=== PATIENT | female | born 1985 | race Caucasian/White ===

== ENCOUNTER 2019-06-18 10:18 | Emergency (ER) | payer MEDICAID, OTHER ==
--- NOTE | 2019-06-18 11:16 | EDM.PDOC ---
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 Initially developed sinus discomfort and drainage a week ago. No fever/ST/cough or respiratory symptoms. Has been seen twice for her symptoms over the week. First by Maribel, then by Jose Guadalupe, due to the increased concern over Covid 19 and possible contraction of the virus by worksite. Cleared at first visit, thought to be viral/sinusitis. Jose Guadalupe also cleared her but decided to give the patient updated pneumonia and flu vaccinations. This was 3 days ago. Over the last 24-36 hours patient has started to develop redness over the right arm site where pneumonia shot given. Also is achy in that area and has had low grade temp. Currently afebrile as she took Tylenol. Continues to have some sinus discomfort. No respiratory changes/cough/wheeze/ SOB. No GI changes noted. Denies UTI complaints. Denies headache/ear pain. 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 [No Known Home Meds] 06/18/19 [History] Past Medical History - Past Health History Medical/Surgical History: Denies Medical/Surgical History Social & Family History - Tobacco Use Smoking Status *Q: Current Every Day Smoker Years of Tobacco use: 17 Packs/Tins Daily: 0.5 Second Hand Smoke Exposure: Yes - Caffeine Use Caffeine Use: Reports: Coffee, Soda Caffeine Use Comment: coffee- 2-3 daily soda, 1-2 per day - Alcohol Use Alcohol Use History: Yes Alcohol Use Frequency: Rarely - Recreational Drug Use Recreational Drug Use: No ED ROS GENERAL - Review of Systems Review Of Systems: Comprehensive ROS is negative, except as noted in HPI. ED EXAM, GENERAL - Physical Exam Exam: See Below Exam Limited By: No Limitations General Appearance: Alert, WD/WN, No Apparent Distress, Anxious Eye Exam: Bilateral Eye: EOMI, PERRL Ears: Normal External Exam, Hearing Grossly Normal Nose: No: Nasal Deformity, Nasal Swelling, Nasal Drainage Throat/Mouth: Normal Inspection Head: Atraumatic, Normocephalic Neck: Supple, Non-Tender Respiratory/Chest: No Respiratory Distress, Lungs Clear, Normal Breath Sounds, No Accessory Muscle Use Cardiovascular: Regular Rate, Rhythm, No Murmur GI/Abdominal: Soft (Female) Exam: Deferred Rectal (Female) Exam: Deferred Back Exam: No: Muscle Spasm Extremities: Normal Capillary Refill, Other (area of redness noted over proximaly right arm/increased warmth to touch/discomfort with palpation. Joints unremarkable/full ROM. ) Neurological: Alert, Oriented, Normal Cognition, Normal Gait, No Motor/Sensory Deficits Psychiatric: Normal Affect, Normal Mood Skin Exam: Warm, Erythema, Increased Warmth (as above), Rash (as above). No: Cool, Cyanosis, Diaphoretic, Mottled, Zoster-Like Rash Course - Vital Signs Last Recorded V/S: Last Vital Signs Temp 36.4 C 06/18/19 10:21 Pulse 98 06/18/19 10:21 Resp 16 06/18/19 10:21 BP 113/63 06/18/19 10:21 Pulse Ox 98 06/18/19 10:21 - Re-Assessments/Exams Free Text/Narrative Re-Assessment/Exam: 06/18/19 11:20 Suspect reaction to immunization as side effects can include rash at injection site and fever. Influenza and rapid strep testing performed to officially rule out those possibilities. Patient is not appearing to exhibit usual symptoms associated with Covid 19. Does not meet testing criteria. OK to return to work if she abides by handwashing rules and wears mask until asymptomatic for 24 hours. To follow up as needed otherwise. Departure - Departure Time of Disposition: 11:23 Disposition: Home, Self-Care 01 Condition: Good Clinical Impression: Immunization reaction Qualifiers: Encounter type: initial encounter Qualified Code(s): T50.Z95A - Adverse effect of other vaccines and biological substances, initial encounter - Discharge Information *PRESCRIPTION DRUG MONITORING PROGRAM REVIEWED*: Not Applicable *COPY OF PRESCRIPTION DRUG MONITORING REPORT IN PATIENT LISA: Not Applicable Additional Instructions: Observe for changes and follow up as needed. Wear a mask at work until you are asymptomatic for 24 hours. Follow handwashing procedures. Sepsis Event Note - Evaluation Sepsis Screening Result: No Definite Risk - Focused Exam Vital Signs: Vital Signs Temp Pulse Resp BP Pulse Ox 06/18/19 10:21 36.4 C 98 16 113/63 98 Date Exam was Performed: 06/18/19 Time Exam was Performed: 11:00
== END 2019-06-18 11:45 | disposition home or self-care (01) ==
LOC: LL.ED 10:18
DX: R50.9 Fever, unspecified (principal); T50.Z95A Adverse effect of other vaccines and biological substances, initial encounter; F17.210 Nicotine dependence, cigarettes, uncomplicated
CPT/HCPCS: 87081; 87430; 87804; 99283

== ENCOUNTER 2019-10-23 19:30 | Emergency (ER) | payer OTHER, MEDICAID ==
[2019-10-23] MEDS ORDERED: Cephalexin 250 MG Cap PO ONE (20:12)
--- NOTE | 2019-10-23 20:17 | EDM.PDOC ---
ED HPI GENERAL MEDICAL PROBLEM - General Chief Complaint: General Stated Complaint: lump near earlobe on right ear Time Seen by Provider: 10/23/19 19:32 Source of Information: Reports: Patient History Limitations: Reports: No Limitations - History of Present Illness INITIAL COMMENTS - FREE TEXT/NARRATIVE: Patient comes in to have area of redness/swelling/pain assessed that is started out right in front of ear lobe of right ear. 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 Reforms if attempts to express it performed. Has not become infected before--patient wonders if mask wearing at work irritated it. No fevers/chills. Hurts to open her mouth today. Unable to get clinic appointment until Wednesday so had to come to ER as this was worsening. Redness started several days ago. Right Ear Pain Score (Numeric/FACES): 5 - Related Data Allergies Allergy/AdvReac Type Severity Reaction Status Date / Time No Known Allergies Allergy Verified 06/18/19 10:20 Home Meds: Home Meds cephALEXin [Keflex] 500 mg PO Q8H #15 cap 10/23/19 [Rx] norgestimate-ethinyl estradioL [Tri-Linyah Tablet] 1 tab PO DAILY 10/23/19 [History] Past Medical History - Past Health History Medical/Surgical History: Denies Medical/Surgical History - Infectious Disease History Infectious Disease History: Reports: Chicken Pox Social & Family History - Caffeine Use Caffeine Use: Reports: Coffee, Soda Caffeine Use Comment: coffee- 2-3 daily soda, 1-2 per day ED ROS GENERAL - Review of Systems Review Of Systems: Comprehensive ROS is negative, except as noted in HPI. ED EXAM, GENERAL - Physical Exam Exam: See Below Exam Limited By: No Limitations General Appearance: Alert, WD/WN, No Apparent Distress Eye Exam: Bilateral Eye: EOMI, PERRL Ears: Other (area of firmness/redness/swelling that is tender to touch is noted just anterior to right ear lobe. Small blackhead at center. No active drainage. ) Nose: Normal Inspection Throat/Mouth: Normal Inspection, Normal Voice, No Airway Compromise Head: Atraumatic Neck: Supple, Non-Tender, Full Range of Motion. No: Lymphadenopathy (L), Lymphadenopathy (R) Respiratory/Chest: No Respiratory Distress Neurological: Alert, Oriented, Normal Cognition, Normal Gait Psychiatric: Normal Affect, Normal Mood Skin Exam: Other (see above) ED GENERAL MEDICAL PROCEDURES - Additional/Other Procedure(s) Other (Free Text) Procedure(s): Small 1cm incision made over abscess using #11 blade. Copious amounts of purulent material drained from site. 2cm of 1/4" iodoform packed into area. Wound then dressed by nursing staff. Course - Vital Signs Last Recorded V/S: Last Vital Signs Temp 36.3 C 10/23/19 20:01 Pulse 74 10/23/19 20:01 Resp 18 10/23/19 20:01 BP 115/63 10/23/19 20:01 Pulse Ox 99 10/23/19 20:01 - Orders/Labs/Meds Meds: Medications Discontinued Medications Generic Name Dose Route Start Last Admin Trade Name Freq PRN Reason Stop Dose Admin Cephalexin 500 mg 10/23/19 20:12 Keflex PO 10/23/19 20:13 ONETIME ONE - Re-Assessments/Exams Free Text/Narrative Re-Assessment/Exam: 10/23/19 20:23 Abscess drained. Packed with small amount Iodoform. Keflex PO given. Wound care reviewed. Recommend she follow up with Derm or other capable provider to have cyst wall from EIC removed once infection cleared and inflammation resolved. Recommend wound check in two days. To follow up as needed otherwise. Departure - Departure Time of Disposition: 20:13 Disposition: Home, Self-Care 01 Condition: Good Clinical Impression: Abscess - Discharge Information *PRESCRIPTION DRUG MONITORING PROGRAM REVIEWED*: Not Applicable *COPY OF PRESCRIPTION DRUG MONITORING REPORT IN PATIENT LISA: Not Applicable Prescriptions: cephALEXin [Keflex] 500 mg PO Q8H #15 cap Instructions: Skin Abscess, [id number] Referrals: Ciera Vega NP [Primary Care Provider] - Forms: ED Department Discharge Additional Instructions: Keep packing in for two days. See if you can get appointment at your clinic for wound check/new packing if needed on Wednesday of this week. Feel free to call our clinic if you have any problems getting in to yours. TAke Keflex as directed. Recommend getting cyst wall removed in a month or two to prevent recurrence as we discussed. Follow up otherwise as needed if you have any problems/concerns. Sepsis Event Note (ED) - Evaluation Sepsis Screening Result: No Definite Risk - Focused Exam Vital Signs: Vital Signs Temp Pulse Resp BP Pulse Ox 10/23/19 20:01 36.3 C 74 18 115/63 99
== END 2019-10-23 20:30 | disposition home or self-care (01) ==
LOC: SUPCPDRO 19:30 → LL.ED 19:30
DX: H60.01 Abscess of right external ear (principal)
CPT/HCPCS: 10060; 99282-25

== ENCOUNTER 2019-11-26 17:02 | Emergency (ER) | payer OTHER, MEDICAID ==
--- NOTE | 2019-11-26 17:40 | EDM.PDOC ---
ED HPI GENERAL MEDICAL PROBLEM - General Chief Complaint: ENT Problem Stated Complaint: bilat ear pain Time Seen by Provider: 11/26/19 17:15 Source of Information: Reports: Patient History Limitations: Reports: No Limitations - History of Present Illness INITIAL COMMENTS - FREE TEXT/NARRATIVE: Pt presents with ear pain No fever Also with white spots in her throat No cough Onset: Gradual Location: Reports: Head Associated Symptoms: Reports: Other (Ear pain Sore throat) bilat ear pain Pain Score (Numeric/FACES): 5 - Related Data Allergies Allergy/AdvReac Type Severity Reaction Status Date / Time No Known Allergies Allergy Verified 11/26/19 17:02 Home Meds: Home Meds norgestimate-ethinyl estradioL [Tri-Linyah Tablet] 1 tab PO DAILY 10/23/19 [History] Ibuprofen 400 mg PO Q6HR PRN 11/26/19 [History] Past Medical History - Past Health History Medical/Surgical History: Denies Medical/Surgical History HEENT History: Reports: Impaired Vision, Other (See Below) Other 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: Endocrine/Metabolic History: Reports: Obesity/BMI 30+ - Infectious Disease History Infectious Disease History: Reports: Chicken Pox Social & Family History - Tobacco Use Smoking Status *Q: Current Every Day Smoker Years of Tobacco use: 19 Packs/Tins Daily: 0.5 - Caffeine Use Caffeine Use: Reports: Coffee, Energy Drinks Other Caffeine Use: 1 energy drink every few weeks Caffeine Use Comment: coffee- 2-3 daily soda, 1-2 per day - Recreational Drug Use Recreational Drug Use: No ED ROS ENT - Review of Systems Review Of Systems: See Below HEENT: Reports: Ear Pain, Throat Pain ED EXAM, ENT - Physical Exam Exam: See Below Exam Limited By: No Limitations Ears: Normal TMs Mouth/Throat: Other (OP with several small white areas in the crevices of tonsils No exudate No erythema) Course - Vital Signs Last Recorded V/S: Last Vital Signs Temp 97.4 F 11/26/19 17:04 Pulse 68 11/26/19 17:04 Resp 16 11/26/19 17:04 BP 126/70 11/26/19 17:04 Pulse Ox 98 11/26/19 17:04 Departure - Departure Time of Disposition: 17:40 Disposition: Home, Self-Care 01 Clinical Impression: Ear pain Qualifiers: Laterality: bilateral Qualified Code(s): H92.03 - Otalgia, bilateral - Discharge Information *PRESCRIPTION DRUG MONITORING PROGRAM REVIEWED*: Not Applicable *COPY OF PRESCRIPTION DRUG MONITORING REPORT IN PATIENT LISA: Not Applicable Instructions: Earache, Adult Referrals: Ciera Vega NP [Primary Care Provider] - Additional Instructions: Mucinex as needed Follow up in clinic Sepsis Event Note (ED) - Evaluation Sepsis Screening Result: No Definite Risk - Focused Exam Vital Signs: Vital Signs Temp Pulse Resp BP Pulse Ox 11/26/19 17:04 97.4 F 68 16 126/70 98
== END 2019-11-26 17:45 | disposition home or self-care (01) ==
LOC: LL.ED 17:02
DX: H92.03 Otalgia, bilateral (principal); F17.210 Nicotine dependence, cigarettes, uncomplicated; E66.9 Obesity, unspecified; Z68.32 Body mass index [BMI] 32.0-32.9, adult
CPT/HCPCS: 99282

== ENCOUNTER 2021-03-29 12:36 | Emergency (ER) | payer MEDICAID, OTHER ==
--- NOTE | 2021-03-29 13:13 | EDM.PDOC ---
ED HPI GENERAL MEDICAL PROBLEM - General Chief Complaint: General Stated Complaint: L toe pain, #4,#5 Time Seen by Provider: 03/29/21 12:43 Source of Information: Reports: Patient - History of Present Illness INITIAL COMMENTS - FREE TEXT/NARRATIVE: pt presents to the ED on 03/29/21 with complaints of left #4-5 toe pain. pain 4- 5/10. non radiating. dull and throbbing. worse with movement and better with r est. tried nothing prior to coming to the ED. was intoxicated last night and does not remember any injury. woke up this morning with pain on movement and bruising to surrounding skin. no other associated symptoms. came to ED to evaluate possible fracture. 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 9 with activity) - Related Data Allergies Allergy/AdvReac Type Severity Reaction Status Date / Time No Known Allergies Allergy Verified 03/29/21 12:48 Home Meds: Home Meds . 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: Endocrine/Metabolic History: Reports: Obesity/BMI 30+ - Infectious Disease History Infectious Disease History: Reports: Chicken Pox Social & Family History - Family History Family Medical History: No Pertinent Family History - Tobacco Use Tobacco Use Status *Q: Current Every Day Tobacco User Tobacco Use Within Last Twelve Months: Cigarettes Years of Tobacco use: 20 Packs/Tins Daily: 0.5 Smoking Cessation Information Provided To Patient: Patient Refused Second Hand Smoke Exposure: Yes Second Hand Smoke Education Provided: Patient Refused - Tobacco Core Measures Tobacco Use/Smoking Within Last 30 Days: Yes Smoking Frequency Within Last 30 Days: Reports: Five or More Cigarettes Per Day Smokeless Tobacco Use in Last 30 Days: No Desires Tobacco Cessation Medication: Refuses FDA Approved Med - Caffeine Use Caffeine Use: Reports: Coffee, Energy Drinks Other Caffeine Use: 1 energy drink every few weeks Caffeine Use Comment: coffee- 2-3 daily soda, 1-2 per day - Alcohol Use Alcohol Use History: Yes Alcohol Use in Last Twelve Months: Yes Alcohol Use Frequency: Monthly - Recreational Drug Use Recreational Drug Use: No Drug Use in Last 12 Months: No - Sexual History Sexual History: Reports: Single Partner Contraceptive Use: Reports: Rarely/Does Not Use - Living Situation & Occupation Living situation: Reports: with Significant Other Occupation: Employed ED ROS GENERAL - Review of Systems Review Of Systems: See Below Constitutional: Reports: No Symptoms HEENT: Reports: No Symptoms Respiratory: Reports: No Symptoms Cardiovascular: Reports: No Symptoms Endocrine: Reports: No Symptoms GI/Abdominal: Reports: No Symptoms : Reports: No Symptoms Musculoskeletal: Reports: Other (toe pain. left foot. 4th and 5th digits. ) Skin: Reports: Bruising (surrounding effected left toes #4-5) Neurological: Reports: No Symptoms Psychiatric: Reports: No Symptoms Hematologic/Lymphatic: Reports: No Symptoms Immunologic: Reports: No Symptoms ED EXAM, GENERAL - Physical Exam Exam: See Below Exam Limited By: No Limitations General Appearance: Alert, WD/WN, No Apparent Distress Eye Exam: Bilateral Eye: EOMI Ears: Normal External Exam Nose: Normal Inspection Throat/Mouth: Normal Voice, No Airway Compromise Respiratory/Chest: No Respiratory Distress, Lungs Clear, Normal Breath Sounds, No Accessory Muscle Use, Chest Non-Tender Cardiovascular: Normal Peripheral Pulses, Regular Rate, Rhythm, No Edema, No Murmur, No Rub GI/Abdominal: Soft, Non-Tender (Female) Exam: Deferred Rectal (Female) Exam: Deferred Back Exam: Full Range of Motion Extremities: No Pedal Edema, Other (pain and ecchymosis to LLE digits 4-5. limited active ROM. passive ROM intact. ) Neurological: Alert, Oriented, Normal Cognition, No Motor/Sensory Deficits Psychiatric: Normal Affect, Normal Mood Skin Exam: Warm, Dry Course - Vital Signs Last Recorded V/S: Last Vital Signs Temp 98.5 F 03/29/21 12:37 Pulse 114 H 03/29/21 12:37 Resp 16 03/29/21 12:37 BP 107/80 03/29/21 12:37 Pulse Ox 99 03/29/21 12:37 - Orders/Labs/Meds Orders: Active Orders 24 hr Category Date Time Status Foot Comp Min 3V Lt [CR] Stat Exams 03/29/21 13:34 Taken Labs: Laboratory Tests 03/29/21 Range/Units 13:25 Urine HCG, Qual Negative - Re-Assessments/Exams Free Text/Narrative Re-Assessment/Exam: 03/29/21 13:14 met with patient and daughter at bedside. HCG test ordered. will await results prior to XR as no contraception and possible . 03/29/21 13:35 HCG negative. 3v left foot XR ordered 03/29/21 14:20 XR negative for fracture. no intervention required. 03/29/21 14:23 Departure - Departure Time of Disposition: 14:22 Disposition: Home, Self-Care 01 Condition: Good Clinical Impression: Sprain of toe, fifth, left - Discharge Information *PRESCRIPTION DRUG MONITORING PROGRAM REVIEWED*: Not Applicable *COPY OF PRESCRIPTION DRUG MONITORING REPORT IN PATIENT LISA: Not Applicable Referrals: Ciera Vega NP [Primary Care Provider] - Forms: ED Department Discharge Additional Instructions: - weight bearing as tolerated. - rest, elevate, ice (15 minutes on and 45 minutes off) - acetaminophen 1000mg three times daily as needed for pain control. Sepsis Event Note (ED) - Evaluation Sepsis Screening Result: No Definite Risk - Focused Exam Vital Signs: Vital Signs Temp Pulse Resp BP Pulse Ox 03/29/21 12:37 98.5 F 114 H 16 107/80 99 - Problem List Review Problem List Initiated/Reviewed/Updated: Yes - My Orders Last 24 Hours: My Active Orders 03/29/21 13:34 Foot Comp Min 3V Lt [CR] Stat - Assessment/Plan Last 24 Hours: My Active Orders 03/29/21 13:34 Foot Comp Min 3V Lt [CR] Stat Assessment:: sprain injury to left toes #4-5 - HCG: negative - XR left foot: no acute fracture. Plan: - rest, elevate, ice (15 minutes on and 45 minutes off) - acetaminophen 1000mg three times daily as needed for pain control.
== END 2021-03-29 14:35 | disposition home or self-care (01) ==
LOC: LL.ED 12:36
DX: S93.505A Unspecified sprain of left lesser toe(s), initial encounter (principal); E66.9 Obesity, unspecified; Z72.0 Tobacco use; Z68.32 Body mass index [BMI] 32.0-32.9, adult
CPT/HCPCS: 73630-LT; 81025; 99283